=== PATIENT | male | born 1985 | race Hispanic/Latino ===

== ENCOUNTER 2025-01-12 17:39 | Emergency (ER) | payer SELFPAY ==
[~2025-01-12 17:39] MED LIST: Iopamidol 300 61% 100 ML VIAL FS ONE
[2025-01-12] MEDS ORDERED: diphenhydrAMINE 50 MG/ML VIAL ONE (18:16)
[2025-01-12] MEDS ORDERED: Metoclopramide HCl 10 MG (2 mL) VIAL ONE (18:16)
[2025-01-12] MEDS ORDERED: Dexamethasone 10 MG/ML VIAL ONE (18:17)
[2025-01-12] MEDS ORDERED: Ketorolac Tromethamine 30 MG (1 mL) VIAL ONE (18:17)
[2025-01-12 18:36] LABS: #Basophils Less than 0.03 10x3/uL (0.0-0.2); #Eosinophils 0.13 10x3/uL (0.0-0.5); #Monocytes 0.55 10x3/uL (0.0-1.1); #Neutrophils 4.27 10x3/uL (1.5-8.4); %Basophils 0.3 % (0.0-2.0); %Eosinophils 2.1 % (0.0-6.0); %Lymphocytes 18.6 % (18.0-47.0); %Monocytes 9.0 % (0.0-10.0); %Neutrophils 69.7 % (40.0-75.0); Hematocrit 42.4 % (38.8-50.0); Hemoglobin 13.9 g/dL (13.5-17.5); Mean Corpuscular Hemoglobin 29.0 pg (27.0-33.0); Mean Corpuscular Volume 88.5 fL (81.2-95.1); Platelet Count 158 10x3/uL (150-450); Red Blood Cell (RBC) Count 4.79 10x6/uL (4.32-5.72); White Blood Cell (WBC) Count 6.13 10x3/uL (3.5-10.5)
[2025-01-12 18:49] LABS: ALT (SGPT) 21 U/L (Less than 45); AST (SGOT) 21 U/L (11-34); Albumin 4.3 g/dL (3.1-4.5); Alkaline Phosphatase 79 U/L (40-110); Anion Gap 12 mmol/L (10-20); BUN (Urea Nitrogen) 15 mg/dL (8.9-20.6); Bilirubin, Total 0.4 mg/dL (0.3-1.2); Calc. Creatinine Clearance 0 mL/min (70-130); Calcium 9.4 mg/dL (7.8-10.44); Carbon Dioxide 25 mmol/L (22-29); Chloride 105 mmol/L (98-107); Globulin 3.5 g/dL (2.4-3.5); Glucose 83 mg/dL (70-105); Potassium 4.1 mmol/L (3.5-5.1); Sodium 138 mmol/L (136-145)
== END 2025-01-12 19:51 | disposition home or self-care (01) ==
LOC: CSHERS 17:39
DX: G51.0 Bell's palsy (principal); F17.290 Nicotine dependence, other tobacco product, uncomplicated
CPT/HCPCS: 70450; 70491; 80053; 85025; 96374; 96375; J1100; J1200; J1885; J2765; Q9967